=== PATIENT | female | born 1980 | race Hispanic/Latino ===

== ENCOUNTER 2022-09-07 15:55 | Emergency (ER) | payer SELFPAY ==
[2022-09-07] MEDS ORDERED: Boostrix 0.5 ML (Tdap) VIAL (>/=7 yrs of age) ONE (16:51)
[2022-09-07] MEDS ORDERED: Bacitracin 1 PK ONE (16:51)
== END 2022-09-07 17:20 | disposition home or self-care (01) ==
LOC: NAV ERS 15:55
DX: S01.81XA Laceration without foreign body of other part of head, initial encounter (principal); S53.402A Unspecified sprain of left elbow, initial encounter; S70.12XA Contusion of left thigh, initial encounter; W19.XXXA Unspecified fall, initial encounter
CPT/HCPCS: 90471; 90715

== ENCOUNTER 2024-10-01 19:27 | Emergency (ER) | payer SELFPAY | END 2024-10-01 20:20 | disposition home or self-care (01) | LOC: NAV ERS 19:27 | DX: S20.211A Contusion of right front wall of thorax, initial encounter (principal); V47.1XXA Car passenger injured in collision with fixed or stationary object in nontraffic accident, initial encounter | CPT/HCPCS: 99283 ==